=== PATIENT | female | born 1960 | race Caucasian/White ===

== ENCOUNTER 2018-08-19 03:44 | Observation (INO) | payer OTHER ==
[2018-08-19 04:28] LABS: ADD MAN DIFF? NO
[2018-08-19 04:30] LABS: BASOPHILS % 0.6 % (0.0-2.0); EOSINOPHILS # 0.1 10^3/ul (0.0-0.5); EOSINOPHILS % 0.8 % (0.0-7.0); HEMATOCRIT 40.5 % (37.0-47.0); LYMPHOCYTES # 1.7 10^3/ul (0.8-2.9); LYMPHOCYTES % 26.6 % (15.0-51.0); MEAN CORPUSCULAR HEMOGLOBIN 31.7 pg (29.0-33.0); MEAN CORPUSCULAR HGB CONC 34.6 g/dl (32.0-37.0); MEAN CORPUSCULAR VOLUME 91.6 fl (82.0-101.0); MEAN PLATELET VOLUME 9.6 fl (7.4-10.4); MONOCYTE # 0.4 10^3/ul (0.3-0.9); NEUTROPHIL # 4.1 10^3/ul (1.6-7.5); NEUTROPHILS % 64.8 % (39.0-77.0); PLATELET COUNT 290 10^3/UL (140-415); RED BLOOD COUNT 4.42 10^6/ul (4.20-5.40); RED CELL DISTRIBUTION WIDTH 11.5 % (11.5-14.5)
[2018-08-19 04:30] LABS: WHITE BLOOD COUNT 6.3 10^3/ul (4.8-10.8)
[2018-08-19] MEDS: morphine 4 MG/ML VIAL IV ×2 (04:34→06:58)
[2018-08-19] MEDS: ONDANSETRON 4 MG INJ IV (04:34)
[2018-08-19] MEDS: IOHEXOL 300MG/ML 150 ML BTL (04:39)
[2018-08-19] MEDS: SOD CHLORIDE 0.9% 100 ML (04:39)
[2018-08-19 04:47] LABS: ANION GAP 11 (5-13); BLOOD UREA NITROGEN 13 mg/dl (7-20); CALCIUM 9.6 mg/dl (8.4-10.2); CARBON DIOXIDE 25 mmol/L (21-31); CHLORIDE 106 mmol/L (97-110); CHOL/HDL RATIO 6.2 RATIO; CHOLESTEROL 264 mg/dl (100-200); CREATININE 0.71 mg/dl (0.44-1.00); Estimated GFR > 60 mL/min (>60); GLUCOSE 122 mg/dl (70-220); HDL CHOLESTEROL 42 mg/dl (37-92); LDL CHOLESTEROL,CALCULATED 185 mg/dl; POTASSIUM 3.9 mmol/L (3.5-5.1); SODIUM 142 mmol/L (135-144); TRIGLYCERIDES 183 mg/dl (0-149)
[2018-08-19 04:48] LABS: INR 0.95; PROTIME 12.8 Sec (11.9-14.9)
[2018-08-19 04:49] LABS: PARTIAL THROMBOPLASTIN TIME 26.4 Sec (23.0-35.0)
[2018-08-19 04:58] LABS: TROPONIN-I < 0.012 ng/ml (0.000-0.120)
[2018-08-19 06:46] LABS: HEMOGLOBIN A1C 4.8 % (0-5.9)
[2018-08-19 06:51] LABS: ADD UMIC NO; UR ASCORBIC ACID NEGATIVE (NEGATIVE); UR BILIRUBIN (Dip) NEGATIVE (NEGATIVE); UR BLOOD (Dip) NEGATIVE (NEGATIVE); UR CLARITY CLEAR (CLEAR); UR COLOR STRAW (YELLOW); UR GLUCOSE (Dip) NEGATIVE (NEGATIVE); UR KETONES (Dip) NEGATIVE (NEGATIVE); UR LEUKOCYTE ESTERASE (Dip) NEGATIVE Leu/ul (NEGATIVE); UR NITRITE (Dip) NEGATIVE (NEGATIVE); UR SPECIFIC GRAVITY (Dip) 1.043 (1.003-1.030); UR TOTAL PROTEIN (Dip) NEGATIVE (NEGATIVE); UR UROBILINOGEN (Dip) NEGATIVE (NEGATIVE)
[2018-08-19 07:05] LABS: AMPHETAMINE/METHAMPHETAMINE Negative (NEGATIVE); BARBITURATES Negative (NEGATIVE); BENZODIAZEPINES Negative (NEGATIVE); CANNABINOIDS Negative (NEGATIVE); COCAINE Negative (NEGATIVE)
[2018-08-19 07:16] LABS: OPIATES Positive (NEGATIVE)
[2018-08-19] MEDS ORDERED: NACL 0.9% 3 ML SYG IV (09:00)
[2018-08-19] MEDS ORDERED: morphine 4 MG/ML VIAL IV (09:00)
[2018-08-19] MEDS ORDERED: ONDANSETRON 4 MG INJ IV (09:00)
[2018-08-19] MEDS ORDERED: DOCUSATE SODIUM 100 MG CAP PO (09:00)
[2018-08-19] MEDS ORDERED: HYDROCODONE/APAP (5/325) TAB PO (09:00)
[2018-08-19] MEDS ORDERED: ACETAMINOPHEN 325 MG TAB PO (09:00)
[2018-08-19] MEDS ORDERED: ZOLPIDEM 5 MG TAB PO (09:00)
[2018-08-19] MEDS: CYANOCOBALAMIN 500 MCG TAB PO (11:41)
[2018-08-19] MEDS: ASPIRIN (EC) 81 MG TAB PO (11:41)
[2018-08-19] MEDS: KETOROLAC 15 MG INJ IV ×3 (14:29→22:21)
[2018-08-19] MEDS: METHYLPRED. NA SUCC 1,000 MG in DEXTROSE 5% 50 ML IVPB (16:55)
[2018-08-19] MEDS: ATORVASTATIN 40 MG TAB PO (22:20)
[2018-08-20] MEDS: KETOROLAC 15 MG INJ IV (06:00)
[2018-08-20 06:19] LABS: ADD MAN DIFF? NO
[2018-08-20 06:24] LABS: ABNORMAL IP MESSAGE 1; BASOPHILS % 0.2 % (0.0-2.0); HEMATOCRIT 38.9 % (37.0-47.0); HEMOGLOBIN 13.2 g/dl (12.0-16.0); LYMPHOCYTES # 0.5 10^3/ul (0.8-2.9); LYMPHOCYTES % 7.7 % (15.0-51.0); MEAN CORPUSCULAR HEMOGLOBIN 31.5 pg (29.0-33.0); MEAN CORPUSCULAR HGB CONC 33.9 g/dl (32.0-37.0); MEAN CORPUSCULAR VOLUME 92.8 fl (82.0-101.0); MONOCYTES % 0.5 % (0.0-11.0); NEUTROPHIL # 6.1 10^3/ul (1.6-7.5); NEUTROPHILS % 91.1 % (39.0-77.0); PLATELET COUNT 291 10^3/UL (140-415); RED BLOOD COUNT 4.19 10^6/ul (4.20-5.40); RED CELL DISTRIBUTION WIDTH 11.5 % (11.5-14.5)
[2018-08-20 06:24] LABS: WHITE BLOOD COUNT 6.7 10^3/ul (4.8-10.8)
[2018-08-20 06:31] LABS: POSITIVE DIFF @See below
[2018-08-20 07:01] LABS: ANION GAP 14 (5-13); BLOOD UREA NITROGEN 27 mg/dl (7-20); CARBON DIOXIDE 25 mmol/L (21-31); CHLORIDE 105 mmol/L (97-110); CREATININE 0.93 mg/dl (0.44-1.00); Estimated GFR > 60 mL/min (>60); GLUCOSE 157 mg/dl (70-220); MAGNESIUM 2.3 mg/dl (1.7-2.5); PHOSPHORUS 4.4 mg/dl (2.5-4.9); POTASSIUM 4.1 mmol/L (3.5-5.1); SODIUM 144 mmol/L (135-144)
[2018-08-20] MEDS: CYANOCOBALAMIN 500 MCG TAB PO (08:53)
[2018-08-20] MEDS: ASPIRIN (EC) 81 MG TAB PO (08:53)
[2018-08-20] MEDS: ENOXAPARIN 40 MG/0.4 ML SYG SC (09:00)
[2018-08-20] MEDS: INFLUENZA VIRUS VACCINE 0.5 ML (DISPENSING) IM* (12:31)
== END 2018-08-20 16:18 | disposition home or self-care (01) ==
LOC: E/R 03:44 → TEL 07:38
DX: G43.109 Migraine with aura, not intractable, without status migrainosus (principal); G81.94 Hemiplegia, unspecified affecting left nondominant side
CPT/HCPCS: 36415; 70450; 70496; 70498; 70553; 71045; 80048; 80061; 80307; 81003; 82962; 83036; 83735; 84100; 84484; 85025; 85610; 85730; 93005; 96374; 96375; 97161; 97165; 99285-25; G0378